=== PATIENT | female | born 1945 | race Hispanic/Latino ===

== ENCOUNTER 2017-05-02 10:47 | Emergency (ER) | payer MEDICARE ==
[2017-05-02] MEDS ORDERED: DEXAMETHASONE SOD PHOSPHATE 10MG/ML 1ML VIAL ONE (11:53)
== END 2017-05-02 12:04 | disposition home or self-care (01) ==
LOC: EDH 10:47
DX: G89.29 Other chronic pain (principal); M25.572 Pain in left ankle and joints of left foot; I10 Essential (primary) hypertension
CPT/HCPCS: 73610; 96372; 99284; J1100